=== PATIENT | female | born 1965 | race Caucasian/White ===

== ENCOUNTER 2017-05-02 10:34 | Outpatient (CLI) | payer MEDICARE, OTHER ==
[2014-12-21 17:54] VITALS: BP 111/66
== END 2017-05-02 10:35 ==
LOC: LAB 10:34
PROVIDERS: ATTEND Psychiatry & Neurology Psychiatry
DX: Z79.899 Other long term (current) drug therapy (principal)
CPT/HCPCS: 36415; 80061; 83036

== ENCOUNTER 2018-08-21 15:14 | Outpatient (CLI) | payer MEDICARE, OTHER ==
[2014-12-21 17:54] VITALS: BP 111/66
[2018-08-21 15:53] LABS: EOSINOPHILS % 2.5 % (0.0-6.8); MEAN CORPUSCULAR HEMOGLOBIN 29.8 pg (28.0-34.0); MONOCYTES % 5.2 % (0.0-11.0); NEUTROPHILS # 5.8 # k/uL (1.4-7.7)
[2018-08-21 15:56] LABS: eGFR (Non-African) > 60
== END 2018-08-21 15:16 ==
LOC: LAB 15:14
PROVIDERS: ATTEND Psychiatry & Neurology Psychiatry
DX: Z79.899 Other long term (current) drug therapy (principal)
CPT/HCPCS: 36415; 80053; 80061; 83036; 85025